=== PATIENT | male | born 1965 | race Caucasian/White ===

== ENCOUNTER → 2020-04-12 12:49 | Outpatient (CLI) | payer OTHER, SELFPAY ==
--- NOTE | ~2020-04-12 | CT_ITS ---
EXAMINATION: CT abdomen pelvis w con INDICATION: Localized swelling, mass, or lump of the trunk TECHNIQUE: Computed tomographic images of the abdomen and pelvis were obtained after the administrati on of 100 cc of Omnipaque 350 intravenous contrast. The dose-length product (DLP) was 1756.99 mGy-cm. Automated exposure control and iterative reconstruction technique were employed. COMPARISON: 07/26/2012 FINDINGS: Minimal dependent atelectasis is present in the lung bases. The heart size is normal. A sta ble 5 mm nodule of the right middle lobe is consistent with old granulomatous disease. There are nazario ges of interval cholecystectomy. The liver, spleen, pancreas, and adrenal glands are normal. The kidn eys are unremarkable. No pathologically enlarged abdominal or pelvic lymph nodes are identified. Ther e is no free intraperitoneal gas or evidence of bowel obstruction. No abdominal wall mass is identifi ed. Severe spondylosis is present at L5-S1. IMPRESSION: 1. No abdominal wall mass identified. Reviewed, dictated and finalized at location A.
[2020-04-12 13:19] LABS: Estimated Glomerular Filt Rate > 60
== END ==
PROVIDERS: PCP Family Medicine; Visit Provider Family Medicine
DX: R22.2 Localized swelling, mass and lump, trunk (principal)
CPT/HCPCS: 74177; Q9967

== ENCOUNTER 2021-09-14 06:56 | Emergency (ER) | payer OTHER, SELFPAY ==
--- NOTE | ~2021-09-14 | XR_ITS ---
EXAMINATION: XR chest 2V 09/14/2021 07:27 INDICATION: Cough and shortness of breath PROCEDURE: 2 view chest COMPARISON: No prior studies for comparison. FINDINGS: The lungs are clear. The cardiomediastinal silhouette is within normal limits. There are no pleural effusions. There is no pneumothorax suspected. IMPRESSION: 1: NO ACUTE CARDIOPULMONARY DISEASE. Reviewed, dictated and finalized at location A.
[2021-09-14 07:09] VITALS: BP 135/92; PULSE 100; RESP 20; TEMP 37.5; O2SAT 95
--- NOTE | 2021-09-14 07:50 | ED.URI ---
HPI - URI/Sore Throat General Chief Complaint: Upper Respiratory Infection Stated Complaint: cough Time Seen by Provider: 09/14/21 07:44 Source: patient and RN notes reviewed Mode of arrival: ambulatory Limitations: no limitations and clinical condition History of Present Illness HPI Narrative: 55 years old white female, morbidly obese presents with coughing, postnasal discharge, nasal congestion, scratchy throat for the last 6 days. Patient denied history of Covid infection or Covid vaccination. Patient denies any chest pain or shortness of breath. Related Data Allergies Allergy/AdvReac Type Severity Reaction Status Date / Time aspirin Allergy Unknown Nausea and Verified 06/19/21 14:55 Vomiting Review of Systems Review of Systems: CONSTITUTIONAL: Denies fever, chills, or sweats. EYES: Denies visual changes, redness, or discharge. ENT: Denies rhinorrhea, congestion, sore throat, or otalgia. CARDIOVASCULAR: Denies chest pain, palpitations, or edema. RESPIRATORY: Denies cough or dyspnea. GASTROINTESTINAL: Denies abdominal pain, nausea, vomiting, or diarrhea. GENITOURINARY: Denies dysuria or hematuria. SKIN: Denies rash or itching. MUSCULOSKELETAL: Denies back pain, joint pain, or myalgia. NEUROLOGIC: Denies headache, numbness, or weakness. PSYCHIATRIC: Denies anxiety or depression. PMFSH Past Medical History Medical History Abdominal wall mass BMI 50.0-59.9, adult BPH associated with nocturia Cough Erectile dysfunction Essential (primary) hypertension Hepatic steatosis Knee osteoarthritis LLQ abdominal pain Migraine JANETH (obstructive sleep apnea) Plaque psoriasis Family History Family History Father Malignant neoplasm of prostate Other Family history of cardiovascular disease Family history of hearing loss Hypertension Social History Social History Alcohol intake: never Exam Narrative: General appearance: Well-developed, well-nourished Skin: Normal color Head: Normocephalic, nontraumatic Eyes: Clear conjunctiva ENT: Oropharynx normal, ears normal, nose normal Neck: Supple, nontender Chest and respiratory: Airway patent, no respiratory distress, no accessory muscle use Heart: Regular rate/rhythm Abdomen: Soft, nontender, no organomegaly, quiet bowel sounds Vascular: Normal peripheral pulses, normal capillary refill. Musculoskeletal: Normal range of motion, nontender back Neurologic: Alert and oriented ?3, CORRECTIONAL PROGRAM SPECIALIST is normal as tested, no gross motor deficit Course Course Emergency Course: Stable Vital Signs Vital signs: Vital Signs Temperature 37.5 C 09/14/21 07:09 Pulse Rate 100 09/14/21 07:09 Respiratory Rate 20 09/14/21 07:09 Blood Pressure 135/92 H 09/14/21 07:09 Pulse Oximetry 95 09/14/21 07:09 Temperature 37.5 C 09/14/21 07:09 Pulse Rate 100 09/14/21 07:09 Respiratory Rate 20 09/14/21 07:09 Blood Pressure 135/92 H 09/14/21 07:09 Pulse Oximetry 95 09/14/21 07:09 MDM - URI/Sore Throat MDM Narrative Medical decision making narrative: Upper respiratory viral infection is my concern. Covid swab was done in the emergency room, Differential Diagnosis Differential diagnosis: Likely viral infection Critical Care Time Critical Care Time Critical Care Time: No Discharge Plan Discharge Clinical Impression: Acute upper respiratory infection Patient Disposition: Home, Self-Care Condition: Stable Instructions: Antibiotic Form, Cold Symptoms (ED) Additional Instructions: Return if symptoms are worsening , call
[2021-09-14 08:52] LABS: SARS-CoV-2 RNA PCR Negative
== END 2021-09-14 08:00 | disposition home or self-care (01) ==
PROVIDERS: Emergency Provider Emergency Medicine; PCP Family Medicine
DX: J06.9 Acute upper respiratory infection, unspecified (principal); Z20.822 Contact with and (suspected) exposure to COVID-19; N40.1 Benign prostatic hyperplasia with lower urinary tract symptoms; R35.1 Nocturia; I10 Essential (primary) hypertension; M17.10 Unilateral primary osteoarthritis, unspecified knee; G47.33 Obstructive sleep apnea (adult) (pediatric); L40.0 Psoriasis vulgaris; E66.01 Morbid (severe) obesity due to excess calories; Z68.43 Body mass index [BMI] 50.0-59.9, adult
CPT/HCPCS: 71046; 99283; C9803; U0003; U0005

== ENCOUNTER 2022-10-01 10:16 | Emergency (ER) | payer OTHER, SELFPAY ==
--- NOTE | 2022-10-01 10:20 | ED.UPPEXIN ---
HPI - Extremity Injury (Upper) General Chief Complaint: Extremity Injury, Upper Stated Complaint: Left Wrist Pain Source: patient and RN notes reviewed History of Present Illness HPI narrative: 57-year-old male presents to urgent care with complaints of left wrist pain and swelling. Patient states this started abdomen know where last night. Patient reports applying ice and taking ibuprofen without relief. Patient denies any injury or trauma. 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 Patient denies any fevers, chills, numbness, or tingling. Patient also noted to have high blood pressure in apartment and states he hasn't taken his BP meds in a month b/c something was bothering him so he quit taking his meds and he's in a much better mood. Pt denies any chest pain, SOB, dizziness, WILSON, or blurry vision. Related Data Allergies Allergy/AdvReac Type Severity Reaction Status Date / Time aspirin Allergy Unknown Nausea and Verified 10/01/22 10:26 Vomiting Review of Systems Review of Systems: Pertinent positives and pertinent negatives per HPI. PMFSH Past Medical History Medical History Abdominal wall mass BMI 50.0-59.9, adult BPH associated with nocturia Cough Erectile dysfunction Essential (primary) hypertension Hepatic steatosis Knee osteoarthritis LLQ abdominal pain Migraine JANETH (obstructive sleep apnea) Plaque psoriasis Family History Family History Father Malignant neoplasm of prostate Mother Hypertension Heart disease Pacemaker Sibling Breast cancer Other Family history of cardiovascular disease Family history of hearing loss Social History Social History Smoking status: Never smoker Second hand tobacco smoke exposure: Yes Alcohol intake: current Substance use: never Substance use type: does not use Living arrangements: with family Occupation/Education: occupation Additional occupation/education comments: [employer]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 Gender identity (if verbalized by the patient): Female Sexual Orientation (if Verbalized by the Patient): Straight or Heterosexual Comments At the time of my signature, I reviewed and agree with the nursing past medical, surgical, social, and family history. There is no relevant family history pertinent to the patient complaint. Exam Narrative: GENERAL: This is a well-nourished, well-developed patient, in no apparent distress. HEAD: normocephalic, atraumatic. EYES: Sclera clear/white. Vision is grossly intact. EARS: External ears normal, auditory canals clear and without drainage, TMs normal without perforation. Hearing grossly intact. NOSE: External nose normal with no obvious nasal discharge, nares without redness, no rhinorrhea. THROAT: Mucous membranes moist, posterior pharynx clear. NECK: Neck supple, non-tender without lymphadenopathy, masses or thyromegaly. CARDIOVASCULAR: Regular rate RESPIRATORY: Clear to auscultation. Breath sounds equal bilaterally. No wheezes, rales, or rhonchi. GASTROINTESTINAL: Abdomen soft, non-tender, nondistended. Bowel sounds are active. No hepato-splenomegaly, or palpable masses. No guarding. SKIN: warm, intact with no suspicious lesions or rash, good texture and turgor. NEURO: awake, alert, and oriented to person, place and time. There were no obvious focal neurologic abnormalities. EXTREMITIES: No clubbing, cyanosis. Left wrist with moderate swelling and stiffness. Pt has some mobility but not full flexion or extension due to pain. Tender to dorsal wrist. Course Course Level of Care: Express Care Visit Vital Signs Vital signs: Vital Signs Temperature 97.2 F L 10/01/22 10:27 Pulse Rate 69 10/01/22 10:27 Respiratory Rate 18 10/01/22 10:27 Blood Pr
[2022-10-01 10:27] VITALS: BP 175/101; PULSE 69; RESP 18; TEMP 36.2; O2SAT 96
[2022-10-01 10:29] VITALS: BP 175/101; PULSE 69; RESP 18; TEMP 36.2; O2SAT 96
[2022-10-01] MEDS: methylPREDNISolone SOD SUCC 125 MG VIAL IM (11:08)
== END 2022-10-01 11:13 | disposition home or self-care (01) ==
PROVIDERS: Emergency Provider Nurse Practitioner Family; PCP Family Medicine
DX: M19.032 Primary osteoarthritis, left wrist (principal); I10 Essential (primary) hypertension
CPT/HCPCS: 96372; 99213; G0463; J2930

== ENCOUNTER 2023-01-29 00:54 | Day surgery (SDC) | payer OTHER, SELFPAY ==
[2023-01-22 09:16] VITALS: BMI 50.8
--- NOTE | 2023-01-28 17:33 | PM.HPGS ---
History of Present Illness History of Present Illness Consent: Risks, benefits, and alternatives have been discussed and questions answered. Patient agrees to proceed with procedure. Chief complaint: neoplasm screening Narrative: Jelena Jorge is a 57 year old male Referred for colon cancer screening. Review of Systems Review of Systems: All systems reviewed & are unremarkable except as noted in HPI and below PMFSH Past Medical History Medical History Abdominal wall mass BMI 50.0-59.9, adult BPH associated with nocturia Cough Erectile dysfunction Essential (primary) hypertension Gout Hepatic steatosis Knee osteoarthritis LLQ abdominal pain Migraine JANETH (obstructive sleep apnea) Plaque psoriasis Screen for colon cancer Family History Family History Father Malignant neoplasm of prostate Mother Hypertension Heart disease Pacemaker Sibling Breast cancer Other Family history of cardiovascular disease Family history of hearing loss Social History Social History Smoking status: Never smoker Second hand tobacco smoke exposure: Yes Alcohol intake: current Substance use: never Substance use type: does not use Lack of Transportation: No Lack of Food: Never True Current Housing: I Have Housing Concerned About Future Housing: No Difficulty Paying Gas/Electric Bills: No Difficulty Paying for Meds: No Currently Unemployed: No Education: High School Diploma/GED Difficulty w/ Childcare or Family Care: No Living arrangements: with family Occupation/Education: occupation 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 Gender identity (if verbalized by the patient): Female Sexual Orientation (if Verbalized by the Patient): Straight or Heterosexual Spiritual care concerns: No Meds Home Medications and Allergies Home Medications Medication Instructions Recorded Confirmed Type valsartan 160 mg tablet 160 mg PO DAILY #90 tabs 10/19/22 01/29/23 Rx alfuzosin 10 mg tablet,extended 10 mg PO DAILY #30 tabs 12/27/22 01/29/23 Rx release 24 hr (Uroxatral) celecoxib 200 mg capsule (Celebrex) 200 mg PO DAILY #90 caps 12/27/22 01/29/23 Rx allopurinol 100 mg tablet 100 mg PO DAILY #90 tabs 01/08/23 01/29/23 Rx risankizumab-rzaa 150 mg/mL 150 mg subcut [id number] 01/22/23 01/29/23 History subcutaneous syringe (Skyrizi) Allergies Allergy/AdvReac Type Severity Reaction Status Date / Time aspirin Allergy Unknown Nausea and Verified 01/29/23 06:51 Vomiting Exam Const: General: alert Nutritional Appearance: obese Orientation/consciousness: patient oriented x3 Resp: Auscultation: clear to auscultation bilaterally Cardio: Rhythm: regular rhythm GI: GI Palp: Yes Soft to palpation and No Tenderness to palpation present (GI) Neuro: General: patient oriented x3 Assessment and Plan Assessment and plan (1) Screen for colon cancer: Code(s): Z12.11 - Encounter for screening for malignant neoplasm of colon Status: Acute Assessment and Plan: Colonoscopy with possible biopsy or polypectomy or cautery or injection of substances.
[2023-01-29 06:54] VITALS: BP 131/93; PULSE 69; RESP 18; TEMP 36.2; O2SAT 95
[2023-01-29] MEDS: LACTATED RINGERS 1,000 ML 150 ML IV CONT (07:04)
--- NOTE | 2023-01-29 07:33 | WPDANESEPPF ---
Anes - Initial Pre Proc Eval Procedure: Operation Date: 01/29/23 08:00 Proposed Procedures p Colonoscopy - Jean Paul Dejesus MD Date/Time: 01/29/23 07:33 Surgeon: Jean Paul Dejesus MD Pre Op Diagnosis: neoplasm screening Patient Data Age: 57 Gender: M Height: 1.85 m Weight: 175.1 kg Last Vital Signs Temp 97.2 F L 01/29/23 06:54 Pulse 69 01/29/23 06:54 Resp 18 01/29/23 06:54 BP 131/93 H 01/29/23 06:54 Pulse Ox 95 01/29/23 06:54 O2 Del Method Room Air 01/29/23 06:54 Allergies Allergy/AdvReac Type Severity Reaction Status Date / Time aspirin Allergy Unknown Nausea and Verified 01/29/23 06:51 Vomiting Home Medications Medication Instructions Recorded Confirmed Type valsartan 160 mg tablet 160 mg PO DAILY #90 tabs 10/19/22 01/29/23 Rx alfuzosin 10 mg tablet,extended 10 mg PO DAILY #30 tabs 12/27/22 01/29/23 Rx release 24 hr (Uroxatral) celecoxib 200 mg capsule (Celebrex) 200 mg PO DAILY #90 caps 12/27/22 01/29/23 Rx allopurinol 100 mg tablet 100 mg PO DAILY #90 tabs 01/08/23 01/29/23 Rx risankizumab-rzaa 150 mg/mL 150 mg subcut [id number] 01/22/23 01/29/23 History subcutaneous syringe (Skyrizi) Patient hx anesthesia problems: none Family hx anesthesia problems: none Results Review: All pre-operative results and documents have been reviewed as part of the pre-operative evaluation. [facility] Past Medical History Medical History Abdominal wall mass BMI 50.0-59.9, adult BPH associated with nocturia Cough Erectile dysfunction Essential (primary) hypertension Gout Hepatic steatosis Knee osteoarthritis LLQ abdominal pain Migraine JANETH (obstructive sleep apnea) Plaque psoriasis Screen for colon cancer Family History Family History Father Malignant neoplasm of prostate Mother Hypertension Heart disease Pacemaker Sibling Breast cancer Other Family history of cardiovascular disease Family history of hearing loss Social History Social History Smoking status: Never smoker Second hand tobacco smoke exposure: Yes Alcohol intake: current Substance use: never Substance use type: does not use Lack of Transportation: No Lack of Food: Never True Current Housing: I Have Housing Concerned About Future Housing: No Difficulty Paying Gas/Electric Bills: No Difficulty Paying for Meds: No Currently Unemployed: No Education: High School Diploma/GED Difficulty w/ Childcare or Family Care: No Living arrangements: with family Occupation/Education: occupation 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 Gender identity (if verbalized by the patient): Female Sexual Orientation (if Verbalized by the Patient): Straight or Heterosexual Spiritual care concerns: No Anes - Eval Final PreProcedure Day of Procedure 01/29/23 07:33 Patient weight: super morbidly obese Heart: regular rate and rhythm Lungs: clear to auscultation Airway: Mallampati scale class II Neurological: alert and oriented Last oral intake: >/= 8 hours ASA classification: III Emergent: no Anesthetic plan: proceed Anesthesia type and monitoring: general GIVS and standard monitoring Results Review: All pre-operative results and documents have been reviewed as part of the pre-operative evaluation. Informed Consent: The patient's anesthetic plan and its attendant risks and benefits were discussed with the patient/family/POA. Questions were solicited and answers provided to the satisfaction of the patient/family/POA.
[2023-01-29] MEDS: SIMETHICONE ORAL SUSPENSION 20 MG/0.3 ML 30 ML BOTTLE 0.6 ML IRRIGATION (07:58)
[2023-01-29 08:05] VITALS: BP 122/75; PULSE 70; RESP 16; O2SAT 99
[2023-01-29 08:15] VITALS: BP 128/70; PULSE 72; RESP 16; O2SAT 100
[2023-01-29 08:25] VITALS: BP 142/86; PULSE 64; RESP 18; O2SAT 100
== END 2023-01-29 08:34 | disposition home or self-care (01) ==
PROVIDERS: PCP Family Medicine; Visit Provider Internal Medicine Gastroenterology
PROC: 0DJD8ZZ Inspection of Lower Intestinal Tract, Via Natural or Artificial Opening Endoscopic (ICD-10-PCS; CPT 45378; principal; 2023-01-29 08:00)
DX: Z12.11 Encounter for screening for malignant neoplasm of colon (principal); N40.1 Benign prostatic hyperplasia with lower urinary tract symptoms; R35.1 Nocturia; I10 Essential (primary) hypertension; M10.9 Gout, unspecified; K76.0 Fatty (change of) liver, not elsewhere classified; G47.33 Obstructive sleep apnea (adult) (pediatric); L40.0 Psoriasis vulgaris; E66.01 Morbid (severe) obesity due to excess calories; Z68.43 Body mass index [BMI] 50.0-59.9, adult
CPT/HCPCS: 45378; J2704; J7120

== ENCOUNTER 2023-03-18 13:39 | Emergency (ER) | payer OTHER, SELFPAY ==
[2023-03-18 13:45] VITALS: BP 182/92; PULSE 91; RESP 18; TEMP 36.2; O2SAT 96
--- NOTE | 2023-03-18 14:03 | ED.GENADULT ---
HPI - General Adult General Chief complaint: Extremity Injury, Lower Stated complaint: Right Foot/Ankle Pain Source: patient and RN notes reviewed History of Present Illness HPI narrative: 57 yo M presents to urgent care with complaints of right foot and ankle pain. Pt states on Wednesday, he began having pain in his right big toe which has now traveled to his right lateral ankle. Pt also reporting the arch of his right foot has been cramping constantly. Pt denies any injury. Denies any fevers, chills, or new numbness or tingling. Pt does admit a hx of gout in his left wrist that he takes allopurinol for. Related Data Home Medications Medication Instructions Recorded Confirmed risankizumab-rzaa 150 mg/mL 150 mg subcut [id number] 01/22/23 01/29/23 subcutaneous syringe (Skyrizi) Allergies Allergy/AdvReac Type Severity Reaction Status Date / Time aspirin Allergy Unknown Nausea and Verified 01/29/23 06:51 Vomiting Review of Systems Review of Systems: CONSTITUTIONAL: Denies fever, chills, or sweats. EYES: Denies visual changes, redness, or discharge. ENT: Denies otalgia and sore throat CARDIOVASCULAR: Denies chest pain, palpitations, or edema. RESPIRATORY: Denies cough or dyspnea. GASTROINTESTINAL: Denies abdominal pain, nausea, vomiting, or diarrhea. GENITOURINARY: Denies dysuria or hematuria. SKIN: Denies rash or itching. MUSCULOSKELETAL: Right foot and ankle pain NEUROLOGIC: Denies headache, numbness, or weakness. Pertinent positives per HPI. [facility] Past Medical History Medical History Abdominal wall mass BMI 50.0-59.9, adult BPH associated with nocturia Cough Erectile dysfunction Essential (primary) hypertension Gout Hepatic steatosis Knee osteoarthritis LLQ abdominal pain Migraine JANETH (obstructive sleep apnea) Plaque psoriasis Screen for colon cancer Family History Family History Father Malignant neoplasm of prostate Mother Hypertension Heart disease Pacemaker Sibling Breast cancer Other Family history of cardiovascular disease Family history of hearing loss Social History Social History Smoking status: Never smoker Second hand tobacco smoke exposure: Yes Alcohol intake: current Substance use: never Substance use type: does not use Lack of Transportation: No Lack of Food: Never True Current Housing: I Have Housing Concerned About Future Housing: No Difficulty Paying Gas/Electric Bills: No Difficulty Paying for Meds: No Currently Unemployed: No Education: High School Diploma/GED Difficulty w/ Childcare or Family Care: No Living arrangements: with family Occupation/Education: occupation 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 Gender identity (if verbalized by the patient): Female Sexual Orientation (if Verbalized by the Patient): Straight or Heterosexual Spiritual care concerns: No Comments At the time of my signature, I reviewed and agree with the nursing past medical, surgical, social, and family history. There is no relevant family history pertinent to the patient complaint. Exam Narrative: GENERAL: This is a well-nourished, well-developed patient, in no apparent distress. HEAD: normocephalic, atraumatic. EYES: Sclera clear/white. Vision is grossly intact. EARS: External ears normal, auditory canals clear and without drainage. Hearing grossly intact. NOSE: External nose normal with no obvious nasal discharge, nares without redness, no rhinorrhea. THROAT: Mucous membranes moist, posterior pharynx clear. NECK: Neck supple, non-tender without lymphadenopathy, masses or thyromegaly. CARDIOVASCULAR: Regular rate and rhythm without murmurs, gallops, or rubs. RESPIRATORY: Clear to auscultation. Breath sounds equal bilaterally. No whe
[2023-03-18] MEDS: methylPREDNISolone SOD SUCC 125 MG VIAL IM (14:31)
== END 2023-03-18 14:38 | disposition home or self-care (01) ==
PROVIDERS: Emergency Provider Nurse Practitioner Family; PCP Family Medicine
DX: M10.9 Gout, unspecified (principal); I10 Essential (primary) hypertension
CPT/HCPCS: 96372; 99213; G0463; J2930

== ENCOUNTER 2023-04-05 15:37 | Emergency (ER) | payer OTHER, SELFPAY ==
[2023-04-05 15:47] VITALS: BP 133/77; PULSE 74; RESP 18; TEMP 36
== END 2023-04-05 15:47 | disposition left against medical advice (07) ==
LOC: EXPBETH 15:39
PROVIDERS: Emergency Provider Registered Nurse; PCP Family Medicine
DX: R03.0 Elevated blood-pressure reading, without diagnosis of hypertension (principal)
CPT/HCPCS: 99199

== ENCOUNTER 2024-05-21 23:29 | Emergency (ER) | payer OTHER, SELFPAY ==
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
[2024-05-21 23:34] VITALS: BP 151/82; PULSE 77; RESP 16; TEMP 36.4; O2SAT 97
[2024-05-22 01:33] VITALS: BP 145/83; PULSE 73; RESP 16; TEMP 36.4; O2SAT 94
[2024-05-22] MEDS: methocarbamoL 500 MG TABLET 1500 MG PO (03:55)
[2024-05-22] MEDS: ACETAMINOPHEN 500 MG TABLET 1000 MG PO (03:55)
[2024-05-22 03:57] VITALS: BP 139/99; PULSE 95; RESP 16; O2SAT 100
[2024-05-22] MEDS: LIDOCAINE HCL 4% SOLN 50 ML BTL 1 APPLIC TOPICAL (04:20)
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
== END 2024-05-22 04:53 | disposition home or self-care (01) ==
PROVIDERS: Emergency Provider Student in an Organized Health Care Education/Training Program; PCP Family Medicine
DX: S16.1XXA Strain of muscle, fascia and tendon at neck level, initial encounter (principal); V49.40XA Driver injured in collision with unspecified motor vehicles in traffic accident, initial encounter
CPT/HCPCS: 72125; 99284; A9270

== ENCOUNTER 2024-05-31 13:29 | Outpatient (CLI) | payer OTHER, SELFPAY ==
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
== END 2024-05-31 13:30 | disposition home or self-care (01) ==
PROVIDERS: PCP Family Medicine
DX: M54.9 Dorsalgia, unspecified (principal); M51.379 Other intervertebral disc degeneration, lumbosacral region without mention of lumbar back pain or lower extremity pain
CPT/HCPCS: 72100

== ENCOUNTER 2024-06-06 08:10 | Outpatient (CLI) | payer OTHER, SELFPAY ==
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
== END 2024-06-06 08:11 | disposition home or self-care (01) ==
PROVIDERS: PCP Family Medicine; Visit Provider Physician Assistant Medical
DX: M16.0 Bilateral primary osteoarthritis of hip (principal)
CPT/HCPCS: 73502

== ENCOUNTER 2024-07-11 09:31 | Outpatient (CLI) | payer OTHER, SELFPAY ==
--- NOTE | 2024-07-18 17:11 | WPDSLEEPSTUD ---
Sleep Study Date of Study: 07/11/24 Ordering Provider: RAMBO Faust Interpreting Physician: Beverly Raymundo MD Sleep Study Type: Split Polysomnogram Height: 1.85 m Weight: 181.437 kg Body Mass Index: 52.7 Neck Circumference (inches): 22 [place]: 4 Reason for Sleep Study Known obstructive sleep apnea, off CPAP several years, increased fatigue Sleep History Jelena Jorge is a 58-year-old male with know obstructive sleep apnea, on CPAP 10 years ago. He does not awaken from sleep feeling short of breath.He frequently awakens at night with heartburn, belching and coughing. He always snores, and this is always loud enough that others complain. He occasionally has trouble sleeping when he has a cold. He frequently sweats excessively at night. He heart pounding or beating irregularly at night. He constantly falls asleep during the day, rarely falls asleep involuntarily, never falls asleep while driving. He frequently has loss of muscle tone with strong emotion. He does not have daytime difficulties due to excessive sleepiness. He does not feel paralyzed on waking or falling asleep. He does not have vivid dreamlike scenes upon awakening or falling asleep. He does not feel afraid to go to sleep. He rarely has nightmares. He does not frequently remembers dreams. He occasionally has racing thoughts. He does not feel sad or depressed. He rarely has anxiety. He occasionally has muscular tension. He does not notice parts of his body jerking. He does not kick at night. He does not have crawling or aching feelings in his legs. Does not have leg pain during the night. He does not have morning jaw pain. He frequently grinds his teeth at night. He is not bothered by pain during the day nor is he awakened by pain during the night. He frequently wakes up feeling stiff in the morning. He occasionally wakes up with sore achy muscles. He frequently wakes up with pain in the neck and spine. He has fatigue and headaches. Normal bedtime is variable as he works swing shifts. It takes him 5 minutes to fall asleep. He typically awakens 3 times during the night long enough to go to the bathroom and then he returns to sleep within 5 minutes. He estimates getting between 4 and 6 hours of sleep on most nights. He lives at home with his . He takes naps in the afternoon or evening. A short nap lasting 10-15 minutes is not refreshing. He is usually drowsy for an hour after waking. He feels better in the afternoon or evening while working swing shift. Habits: Tobacco: never smoker Caffeine: none Alcohol: none Recreational substances: none PMFSH Past Medical History Medical History Screen for colon cancer Gout BPH associated with nocturia Plaque psoriasis Erectile dysfunction Knee osteoarthritis BMI 50.0-59.9, adult Cough Abdominal wall mass LLQ abdominal pain Migraine Elevated liver enzymes Essential (primary) hypertension Hepatic steatosis JANETH (obstructive sleep apnea) Family History Family History Father Malignant neoplasm of prostate Mother Hypertension Heart disease Pacemaker Sibling Breast cancer Other Family history of cardiovascular disease Family history of hearing loss Social History Social History Smoking status: Never smoker Second hand tobacco smoke exposure: Yes Alcohol intake: current Substance use: never Substance use type: does not use Do You Feel Safe in your Home?: Yes Lack of Transportation: No Lack of Food: Never True Current Housing: I Have Housing Concerned About Future Housing: No Difficulty Paying Gas/Electric Bills: No Difficulty Paying for Meds: No Currently Unemployed: No Education: High School Diploma/GED Difficulty w/ Childcare or Family Care: No Living arrangements: with family Occupation/Education: occupation 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 Gender identity (if verbalized by the patient): Female Sexual Orientation (if Verbalized by the Patient): Straight or Heterosexual Spiritual care concerns: No Medications Home Medications ?Medication ?Instructions ?Recorded ?Confirmed ?Type risankizumab-rzaa 150 mg/mL 150 mg subcut [id number] 01/22/23 05/24/24 History subcutaneous syringe (Skyrizi) celecoxib 200 mg capsule See Rx Instructions .Route 09/14/23 05/24/24 Rx .COMPLEX #90 caps valsartan 160 mg tablet 160 mg PO DAILY #90 tabs 12/13/23 05/24/24 Rx meloxicam 15 mg tablet 15 mg PO DAILY #30 tabs 05/24/24 05/24/24 Rx tizanidine 4 mg tablet 4 mg PO QHS PRN muscle spasticity 05/28/24 Rx #30 tabs rosuvastatin 20 mg tablet 20 mg PO DAILY #90 tabs 05/29/24 Rx alfuzosin 10 mg tablet,extended See Rx Instructions .Route 06/08/24 Rx release 24 hr .COMPLEX #90 tabs allopurinol 300 mg tablet 300 mg PO DAILY #90 tabs 06/28/24 Rx hydrochlorothiazide 25 mg tablet 25 mg PO DAILY #90 tabs 06/28/24 Rx Sleep Procedure A full night polysomnogram using the Photorank multi-channel system recorded the standard physiologic parameters including EEG, EOG, submentalis EMG, anterior tibialis EMG, EKG, body position, nasal and oral airflow using nasal pressure sensor and thermistor. Respiratory parameters of chest and abdominal movements were recorded with Respiratory Inductance Plethysmography belts. Oxygen saturation was recorded by pulse oximetry. Video monitoring was also performed. Sleep stages, periodic limb movements, and EEG arousals were scored in 30 second epochs according to the criteria of the AASM Scoring Manual. The Apnea-Hypopnea Index was calculated using CMS guidelines for definition of hypopnea with 4% O2 desaturations while scoring respiratory events. The patient did not take a sleep aid at the beginning of this test. After the baseline portion the patient had apnea-hypopnea index of 83.7 and a minimum saturation of 68%. He qualified for is titration, used a large ResMed Mirage Quattro fullface mask with heated humidity, initial pressure was CPAP 5 cm, titrated to 7 cm, 9 cm, 11 cm, 13 cm, 15 cm, 17 cm. He was transition to bilevel 18/14 in supine REM then 20/16 for ongoing hypopneas. The computer went down once during the night around 3:31 a.m., spontaneously recovered without any type of intervention from the environmental compliance technician. Sleep Architecture During the diagnostic portion of the study, the total recording time was 144.2 minutes. The total sleep time was 125.5 minutes. Sleep latency was 5.6 minutes. REM latency was 102.0 minutes. Sleep Efficiency was 87.1%. The patient had 11 awakenings for an awakening index of 5.3. Wake after sleep onset time was 13.0 minutes. The patient spent 52.5 minutes, 41.8% of total sleep time in Stage N1. The patient spent 54.0 minutes, 43.0% in Stage N2. The patient spent no time in Stage N3. The patient spent 19.0 minutes, 15.1% in Stage REM sleep. At 12:34:38 AM the patient was placed on PAP treatment and was titrated at pressures ranging from 5* cm/H20 with supplemental oxygen at - up to 20/16/0 cm/H20 with supplemental oxygen at -. During the treatment portion of the study, the total recording time was 350.7 minutes. The total sleep time was 265.0 minutes. Sleep latency was 7.0 minutes. REM latency was 15.5 minutes. Sleep Efficiency was 75.6%. Wake after Sleep Onset time was 78.5 minutes. The patient spent 43.5 minutes, 16.4% of total sleep time in Stage N1. The patient spent 170.5 minutes, 64.3% in Stage N2. The patient spent 2.5 minutes, 0.9% in Stage N3. The patient spent 48.5 minutes, 18.3% in Stage REM. Respiratory Analysis During the diagnostic portion of the study, the patient had 152 hypopneas, 23 obstructive apneas, - mixed apneas, and 1 central apneas for an overall Apnea Hypopnea Index of 83.7 events per hour. The REM Apnea Hypopnea Index was 85.3. The NREM Apnea Hypopnea Index was 83.4. The patient had a Central Apnea Hypopnea Index of 0.5. There were - Respiratory Effort Related Arousals resulting in a RERA index of - events per hour. The Respiratory Disturbance Index is 84.6 events per hour. There was no evidence of Rainer-Valle Respirations. During the treatment portion of the study, the patient had 57 hypopneas, 10 obstructive apneas, - mixed apneas, and 2 central apneas for an overall Apnea Hypopnea Index of 15.6 events per hour. The REM Apnea Hypopnea Index was 14.8. The NREM Apnea Hypopnea Index was 15.8. The patient had a Central Apnea Hypopnea Index of 0.5. There were - Respiratory Effort Related Arousals resulting in a RERA index of - events per hour. The Respiratory Disturbance Index is 20.2 events per hour. There was no evidence of Rainer-Valle Respirations. Arousals During the diagnostic portion of the study, there were a total of 91 arousals for an arousal index of 43.5. There were 44 respiratory arousals for an index of 21.0. There were no periodic limb movement arousals. There were 3 isolated limb movement arousals for an index of 1.4. There were 44 spontaneous arousals for an index of 21.0. During the treatment portion of the study, there were a total of 66 arousals for an index of 14.9. There were 23 respiratory arousals for an index of 5.2. There were 8 periodic limb movement arousals for an index of 1.8. There were 14 isolated limb movement arousals for an index of 3.2. There were 21 spontaneous arousals for an index of 4.8. Periodic Limb Movements During the diagnostic portion of the study, the patient had 8 isolated limb movements with an index of 3.8. The patient had 7 periodic limb movements with an index of 3.3. The patient had a total of 15 limb movements with a total limb movement index of 7.2. During the treatment portion of the study, the patient had 23 isolated limb movements with an index of 5.2. The patient had 48 periodic limb movements with an index of 10.9. The patient had a total of 71 limb movements with a total limb movement index of 16.1. Oximetry Data During the diagnostic portion of the study, the patient had an average oxygen saturation of 89.5% in wake with a minimum oxygen saturation of 69% and a maximum oxygen saturation of 99%. The patient had an average oxygen saturation of 87.4% in sleep with a minimum oxygen saturation of 68% and a maximum oxygen saturation of 99%. The patient had 202 oxygen desaturations resulting in an Oxygen Desaturation Index of 97.5. The patient spent 69.4 minutes, 48.4% of total sleep time with an oxygen saturation less than 88%. During the treatment portion of the study, the patient had an average oxygen saturation of 91.7% in wake with a minimum oxygen saturation of 83% and a maximum oxygen saturation of 97%. The patient had an average oxygen saturation of 90.4% in sleep with a minimum oxygen saturation of 83% and a maximum oxygen saturation of 98%. The patient had 109 oxygen desaturations resulting in an Oxygen Desaturation Index of 24.9. The patient spent 42.8 minutes, 13% of total sleep time with an oxygen saturation less than 88%. Snoring Profile Snoring was moderate to loud, eliminated during the titration. Cardiac Profile During the diagnostic portion of the study, the EKG showed normal sinus rhythm. The average pulse rate was 61.9 bpm. The minimum pulse rate was 52 bpm. The maximum pulse rate was 90 bpm. No arrhythmias noted. During the treatment portion of the study, the EKG showed normal sinus rhythm. The average pulse rate was 61.8 bpm. The minimum pulse rate was 50 bpm. The maximum pulse rate was 91 bpm. No arrhythmias noted. EEG Profile EEG was unremarkable, no evidence of seizures. Assessment and Plan Assessment and Plan (1) JANETH (obstructive sleep apnea): Code(s): G47.33 - Obstructive sleep apnea (adult) (pediatric) Status: Acute Assessment and Plan: This split night sleep study on 07/11/2024 shows severe obstructive sleep apnea syndrome, the apnea-hypopnea index is 83.7 using a 4% criteria, minimum desaturation to 68% and moderate snoring, successfully treated using CPAP 15 cm of water pressure and a large ResMed Mirage Quattro fullface mask with heated humidity. At this pressure, the patient spent 140.5 minutes in bed, 31 minutes awake, 76.5 minutes in non-REM and 33 minutes in REM. The sleep efficiency was 77.9%. The residual apnea-hypopnea index was 3.3 and the mean saturation was 90.9%. The patient had some supine REM at this setting. Another pressure which may be acceptable is CPAP 17 cm. The residual apnea-hypopnea index was 8.0 at this setting with a minimum saturation of 88%. The sleep efficiency was lower, 66.7% and the patient spent much less time at this pressure, 22.2 minutes however REM also occurred. The patient should be prescribed this ResMed equipment with CPAP 15 cm as well as tubing, filters and reservoir. This should be used with all episodes of sleep. Compliance should be reviewed within 31-90 days of starting therapy for usage greater than 4 hours per night greater than 70% of the nights. The patient should be asked about symptoms such as excessive daytime sleepiness, quality of sleep, decreased nocturia, increased mental functioning such as memory, mood, and concentration. I also recommend that the patient has an overnight oximetry on room air using CPAP 15 to assure that the nocturnal hypoxemia has resolved. If he remains below 88% for more than 5 minutes I recommend increasing his CPAP to 17 cm of water pressure and repeating the evaluation of the compliance. Please referred to Sleep Medicine if you need any assistance with this complicated patient. BMI is 52. Weight management is advised. Clinical data suggests that weight loss of 10% can reduce the severity of respiratory events and snoring and improve AHI by as much as 25%. Data The data obtained during this sleep study is adequate for interpretation. Certification This sleep study has been reviewed by a board certified sleep medicine physician.
[2024-07-18 17:45] VITALS: BMI 52.7
== END 2024-07-12 06:37 | disposition home or self-care (01) ==
LOC: ANHCSM 09:40
PROVIDERS: PCP Family Medicine; Visit Provider Nurse Practitioner Family
DX: G47.33 Obstructive sleep apnea (adult) (pediatric) (principal)
CPT/HCPCS: 95811

== ENCOUNTER 2025-03-07 09:23 | Outpatient (CLI) | payer OTHER, SELFPAY ==
--- NOTE | ~2025-03-07 | CT_ITS ---
EXAMINATION: CT abdomen pelvis wo/w con DATE: 03/07/2025 10:18 INDICATION: Left kidney mass. TECHNIQUE: Computed tomography (CT) of the abdomen and pelvis was performed without and with 100 mL Omnipaque 350 intravenous contrast. Automated exposure control and iterative reconstruction technique were employed. The dose-length product was 2960.45 mGy-cm. COMPARISON: CT abdomen and pelvis 04/12/2020 FINDINGS: The visualized portions of lung bases demonstrate mild atelectasis. Calcified pulmonary nodules and calcified hilar lymph nodes are consistent with old granulomatous disease. There is a stable 5 mm nodule in right middle lobe, likely benign. No pleural effusion. The heart size is normal. No pericardial effusion. The liver is normal. Calcifications in the spleen are consistent with old granulomatous disease. There are changes of cholecystectomy. The pancreas, adrenal glands, and right kidney are normal. There is a 7.7 cm enhancing mass in left kidney. There is no urolithiasis. There are no dilated loops of bowel. The appendix is not visualized. There are no pathologically enlarged lymph nodes. There is no free intraperitoneal fluid. There is mild thoracic spondylosis and severe lumbar spondylosis. IMPRESSION: 1. 7.7 cm enhancing mass in left kidney, consistent with renal cell carcinoma. Reviewed, dictated and finalized at location E.
--- OUTSIDE RECORDS SUMMARY | 2025-03-07 10:08 | XMS_ITS | Encounter Summary ---
Author Organization [facility] Address [address] [place] [address] Care Team Providers Care Application Assistant Name Role Phone Sachin Cooper MD Primary Care Provider Reason for Visit * Reason Onset Date Comments Nurse Only 11/08/2024 Encounter Details Date Type Department Care Team (Late st Contact Info) Description 11/08/2024 Telephone [facility] - Dermatology [address] [place] [address], [facility] [place] [address] Christopher Teran MD [address] [place] [address] 3 [place] [address] Nurse Only Social History Tobacco Use Types Packs/Day Years Used Date Smoking Tobacco: Never Smokeless Tobacco: Never Alcohol Use Standard Drinks/Week Comments Yes 2 (1 standard drink = 0.6 oz pur e alcohol) rarely Sex and Gender Information Value Date Recorded Sex Assigned at Not on file Legal Sex Male 5:14 PM BOX COVERER HAND Gender Identity Not on file Sexual Orientation Not on file documented as of this encounter Miscellaneous Notes * Telephone Encounter - Prema Chung PA - 11/14/2024 11:07 AM CDT Requested Prescriptions Pending Prescriptions Disp Refills risankizumab-rzaa (Skyrizi Pen) 150 MG/ML injection 1 mL 2 Sig: GIVE ONE INJECTION(S) (150MG) SUBCUTANEOUSLY ONCE EVERY 12 WEEKS. Sent to [facility] pharmacy per insurance Perma MALDONADO PA-C * Telephone Encounter - Kelley Rocha - 11/13/2024 3:56 PM CDT Prema how many refills can I give the pharmacy. Kelley Rocha Last visit: 05/15/24 Next visit: not scheduled Lab: Quant Gold TB Plus 05/17/24 negative Kelley Rocha * Telephone Encounter - Júnior Whitaker - 11/13/2024 2:59 PM CDT [facility] [employer] is stating that pt is requesting Skyrizi his last does was May. She is asking if pt needs to restart medication. * Telephone Encounter - Nel Schuster - 11/10/2024 11:25 AM CDT Tanvi with [employer] is calling about this pt needing refills. Tanvi mentioned that this is the second attempt to reach someone. Please assist, thank you! * Telephone Encounter - Alexx Goodwin - 11/08/2024 3:12 PM CDT Pt s pharmacy is calling to get a refill of a pts medication risankizumab-rzaa (Skyrizi Pen) 150 MG/ML injection cbn for pharmcary [phone] documented in this encounter Plan of Treatment Upcoming Encounters Date Type Department Care Team (Late st Contact Info) Description 07/16/2025 8:40 AM BOX COVERER HAND Office Visit [facility] - Dermatology [address] [place] [address], [place] [id number] Christopher Teran MD [address] [place] [address] 3 [place] [address] documented as of this encounter Visit Diagnoses Diagnosis Other psoriasis documented in this encounter Care Teams Application Assistant Relationship Specialty Start Date End Date Sachin Cooper MD [address] [place] [address] PCP - General 08/23/12 documented as of this encounter
--- OUTSIDE RECORDS SUMMARY | 2025-03-07 10:08 | XMS_ITS | Encounter Summary ---
Author Organization [facility] Address [address] [place] [address] Care Team Providers Care Crop And Soil Technician Name Role Phone Sachin Cooper MD Primary Care Provider [phone] Reason for Visit * Reason Onset Date Comments General 07/27/2024 Encounter Details Date Type Department Care Team (Late st Contact Info) Description 07/27/2024 Telephone [facility] - Centralized Scheduling [address] [place] [phone] Christopher Teran MD [address] [facility] 3 [place] [address] General Social History Tobacco Use Types Packs/Day Years Used Date Smoking Tobacco: Never Smokeless Tobacco: Never Alcohol Use Standard Drinks/Week Comments Yes 2 (1 standard drink = 0.6 oz pur e alcohol) rarely Sex and Gender Information Value Date Recorded Sex Assigned at Not on file Legal Sex Male 5:14 PM CHILD CAREGIVER Gender Identity Not on file Sexual Orientation Not on file documented as of this encounter Miscellaneous Notes * Telephone Encounter - Kelley Rocha - 07/27/2024 10:16 AM CST Called pt to advise [facility] to reach [facility] by phone and pt advised [facility] is [facility] specialty [facility] uses not [facility]. Kelley Rocha D CAREGIVER * Telephone Encounter - Monet Andino - 07/27/2024 9:45 AM CST A nurse from [facility] would like to let provider know that the referral for the [facility] has been canceled. They made 3 attempts to call patient and they are going to close the account n [phone] D CAREGIVER documented in this encounter Plan of Treatment Upcoming Encounters Date Type Department Care Team (Late st Contact Info) Description 07/16/2025 8:40 AM CHILD CAREGIVER Office Visit [facility] - Dermatology [address] [place] [address], [place] [phone] Christopher Teran MD [address] [place] [address] 3 [place] [address] documented as of this encounter Visit Diagnoses Not on filedocumented in this encounter Care Teams Crop And Soil Technician Relationship Specialty Start Date End Date Sachin Cooper MD [address] [place] [address] PCP - General 08/23/12 documented as of this encounter
--- OUTSIDE RECORDS SUMMARY | 2025-03-07 10:08 | XMS_ITS | Encounter Summary ---
Author Organization [facility] Address [address] [place] [address] Care Team Providers Care Primary Grade Teacher Name Role Phone Sachin Cooper MD Primary Care Provider [phone] Reason for Visit * Reason Onset Date Comments Question 10/16/2024 Encounter Details Date Type Department Care Team (Late st Contact Info) Description 10/16/2024 Telephone [facility] Dermatology [address] [place] [address], [facility] [place] [address] Christopher Teran MD [address] [place] [address] 3 [place] [address] Question Social History Tobacco Use Types Packs/Day Years Used Date Smoking Tobacco: Never Smokeless Tobacco: Never Alcohol Use Standard Drinks/Week Comments Yes 2 (1 standard drink = 0.6 oz pur e alcohol) rarely Sex and Gender Information Value Date Recorded Sex Assigned at Not on file Legal Sex Male 5:14 PM PAYROLL ACCOUNTANT Gender Identity Not on file Sexual Orientation Not on file documented as of this encounter Progress Notes * Bernadine Barron - 10/26/2024 11:52 AM CDT Medication Prior Authorization: Medication: Skyrizi 150mg/ml pen Status: Approved 10/18/24 through 10/18/25 Submitted via: [facility] Insurance: [facility] [place] (p: [phone]) (f: [phone]) Case/Reference number: ID: [id number] RX Card Billing Info: BIN: [id number] PCN: ADV GROUP: [id number] ID: [id number] PA approval notice uploaded to media tab. Faxed approval notice to [employer]. Will have thecase manager strategic alliances reach out to the patient as well regarding approval of Skyrizi and continue filling with [employer]. Bernadine Barron- Pharmacy Sorority Mother (Dermatology) documented in this encounter Miscellaneous Notes * Telephone Encounter - Bernadine Barron - 10/18/2024 4:42 PM CDT PA submitted forcontinuation of therapy Skyrizi 150mg/ml pen maintenance dose of 150mg every 12 weeks via [employer] currently waiting on decision. [place]: n/a (epa) Provider:[id number] (Jeffry) Rx sent by: Winston Barron It Risk Analyst - Pharmacy Sorority Mother * Telephone Encounter - Angela Robles - 10/16/2024 4:09 PM CDT Pt called stating he needs to speak with a nurse about getting his medications sen to [facility]. documented in this encounter Plan of Treatment Upcoming Encounters Date Type Department Care Team (Late st Contact Info) Description 07/16/2025 8:40 AM PAYROLL ACCOUNTANT Office Visit [facility] - Dermatology [address] [place] [address], [place] [address] Christopher Teran MD [address] [place] [address] 3 [place] [address] documented as of this encounter Visit Diagnoses Not on filedocumented in this encounter Care Teams Primary Grade Teacher Relationship Specialty Start Date End Date Sachin Cooper MD [address] [place] [address] PCP - General 08/23/12 documented as of this encounter
--- OUTSIDE RECORDS SUMMARY | 2025-03-07 10:08 | XMS_ITS | Clinical Summary ---
Author Organization [facility] Address [address] [place] [address] Care Team Providers Care Post Doctoral Fellow Name Role Phone Sachin Cooper MD Primary Care Provider [phone] Allergies Active Allergy Reactions Criticality Noted Date Comments Aluminum Aspirin Nausea Only Low 05/01/2015 Aspirin Nausea only Low 05/01/2015 Medications valsartan (DIOVAN) 80 mg tablet Take 80 mg by mouth daily 1 Active triamcinolone (KENALOG) 0.1 % ointment APPLY TO AFFECTED AREA ON AXILLA AND GROIN TWICE A DAY 1 Active tacrolimus (PROTOPIC) 0.1 % ointment Apply to psoriasis in genitals/skin folds two times daily prn. 30 days supply. 0 Active Cosentyx Pen, 2 Pens, pen injector 1 Active Skyrizi 150mg/1.66mL(75 mg/0.83 mL x2) syringe kit 1 Active meloxicam (MOBIC) 15 mg tablet Take 15 mg by mouth daily 1 Active losartan (COZAAR) 25 mg tablet Take 25 mg by mouth daily 6 Active ibuprofen (ADVIL,MOTRIN) 800 mg tablet Take 800 mg by mouth every 8 (eight) hours as needed 0 Active hydroCHLOROthia zide (HYDRODIURIL) 25 mg tablet Take 25 mg by mouth daily 1 Active diclofenac sodium (VOLTAREN) 1 % gel Apply 1 g topically daily 0 Active clobetasoL (TEMOVATE) 0.05 % ointment APPLY TOPICALLY TO PSORIASIS ON TRUNK/EXTREMIT IES UP TO TWICE DAILY. 6 Active Active Problems Problem Noted Date Diagnosed Date Psoriasis 12/09/2015 Overview (10/09/2020): Last Assessment & Plan: - discussed condition, natural course and treatment options - discussed risks, benefits, and possible side effects of cosentyx and skyrizi -uncontrolled with 4% BSA involvement on cosentyx -patient requesting a trial of a different drug for possibly better control -will request prior auth for skyrizi due to different mechanism of action -will continue cosentyx until skyrizi is approved -patient will start skyrizi 2 weeks after last dose of cosentyx -DC clobetasol due to stinging, starting TAC ointment PRN Social History Tobacco Use Types Packs/Day Years Used Date Smoking Tobacco: Never Smokeless Tobacco: Never Personal Safety Answer Date Recorded Getting School Help Needed Not on file 09/10 Sex and Gender Information Value Date Recorded Sex Assigned at Not on file Legal Sex Male 9:37 AM CHIEF PHARMACIST Gender Identity Not on file Sexual Orientation Not on file Obstetrics History Last Filed Vital Signs Vital Sign Reading Time Taken Comments Blood Pressure 140/88 10/09/2020 9:21 AM CDT Pulse 69 10/09/2020 9:21 AM CDT Temperature 36.5 C (97.7 F) 10/09/2020 9:21 AM CDT Respiratory Rate - - Oxygen Saturation - - Inhaled Oxygen Concentration - - Weight 177.4 kg (391 lb) 10/09/2020 9:21 AM CDT Height 185.4 cm (6' 1) 10/09/2020 9:21 AM CDT Body Mass Index 51.59 10/09/2020 9:21 AM CDT Plan of Treatment Not on file Insurance MALICK MONTEMAYOR PPO Care Teams Post Doctoral Fellow Relationship Specialty Start Date End Date Sachin Cooper MD PCP - General Family Medicine 09/20/20
--- OUTSIDE RECORDS SUMMARY | 2025-03-07 10:08 | XMS_ITS | Encounter Summary ---
Author Organization [facility] Address [address] [facility] [place] [address] Care Team Providers Care Cavalry Scout Name Role Phone Sachin Cooper MD Primary Care Provider [phone] Reason for Visit * Reason Onset Date Comments Refill Request 08/19/2023 Encounter Details Date Type Department Care Team (Late st Contact Info) Description 08/19/2023 Telephone [facility] Dermatology [address] [place] [address], [facility] [place] [address] Christopher Teran MD [address] [place] [address] [address] [place] [address] Refill Request Social History Tobacco Use Types Packs/Day Years Used Date Smoking Tobacco: Never Smokeless Tobacco: Never Alcohol Use Standard Drinks/Week Comments Yes 2 (1 standard drink = 0.6 oz pur e alcohol) rarely Sex and Gender Information Value Date Recorded Sex Assigned at Not on file Legal Sex Male 5:14 PM VETERINARY NURSE Gender Identity Not on file Sexual Orientation Not on file documented as of this encounter Miscellaneous Notes * Telephone Encounter - Bernadine Barron - 09/30/2023 4:15 PM CDT PA submitted and approved for continuation of therapy with Skyrizi 150mg/ml pen every 12 weeks from09/30/23 to 09/29/24 under case:[id number] via [facility] per [employer] and currently waiting on decision. I will fax approval information to [employer] [facility]. [place]: [id number] Case: [id number] Provider: [id number](Jeffry) Bernadine Barron * Telephone Encounter - Prema Chung PA - 08/20/2023 1:26 PM CST This was refilled on the . MA to call patient to see if there is another issue Has he called [facility]? Prema RINARY NURSE * Telephone Encounter - Júnior Whitaker - 08/19/2023 11:38 AM CST Pt is stating that prescription Skyrizi is needing to be renewed in order for him to get him medication filled. RINARY NURSE documented in this encounter Plan of Treatment Upcoming Encounters Date Type Department Care Team (Late st Contact Info) Description 07/16/2025 8:40 AM VETERINARY NURSE Office Visit [facility] Dermatology [address] [place] [address], [facility] [place] [address] Christopher Teran MD [address] [place] [address] 3 [place] [address] documented as of this encounter Visit Diagnoses Not on filedocumented in this encounter Care Teams Cavalry Scout Relationship Specialty Start Date End Date Sachin Cooper MD [address] [place] [address] PCP - General 08/23/12 documented as of this encounter
--- OUTSIDE RECORDS SUMMARY | 2025-03-07 10:08 | XMS_ITS | Encounter Summary ---
Author Organization [facility] Address [address] [facility] [place] [place] [address] Care Team Providers Care Artifacts Conservator Name Role Phone Sachin Cooper MD Primary Care Provider Reason for Visit * Reason Onset Date Comments LABS ONLY 06/25/2021 Encounter Details Date Type Department Care Team (Late st Contact Info) Description 06/25/2021 Telephone [facility] [address] [place] [address] Christopher Teran MD [address] [facility] 3L [place] [address] LABS ONLY Social History Tobacco Use Types Packs/Day Years Used Date Smoking Tobacco: Never Smokeless Tobacco: Never Alcohol Use Standard Drinks/Week Comments Yes 2 (1 standard drink = 0.6 oz pur e alcohol) rarely Sex and Gender Information Value Date Recorded Sex Assigned at Not on file Legal Sex Male 5:14 PM LICENSED PRACTICAL NURSE INSTRUCTOR Gender Identity Not on file Sexual Orientation Not on file documented as of this encounter Miscellaneous Notes * Telephone Encounter - Camila Gould - 06/25/2021 9:27 AM CST Pt called to get an appointment set up, wanted to schedule with Dr Campbell so as not to be out 5 months from follow-up appointment. Needs a blood work order for appointment on 07/01/2021. Would [id number]. Please advise NSED PRACTICAL NURSE INSTRUCTOR documented in this encounter Plan of Treatment Upcoming Encounters Date Type Department Care Team (Late st Contact Info) Description 07/16/2025 8:40 AM LICENSED PRACTICAL NURSE INSTRUCTOR Office Visit [facility] - Dermatology [facility], [place] [address] Christopher Teran MD [address] [place] [address] 3 [place] [address] documented as of this encounter Visit Diagnoses Not on filedocumented in this encounter Care Teams Artifacts Conservator Relationship Specialty Start Date End Date Sachin Cooper MD [address] [place] [address] PCP - General 08/23/12 documented as of this encounter
--- OUTSIDE RECORDS SUMMARY | 2025-03-07 10:08 | XMS_ITS | Clinical Summary ---
Author Organization [facility] Address [address] [place] [address] Care Team Providers Care Wastewater Plant Operator Name Role Phone Sachin Cooper MD Primary Care Provider [phone] Source Comments [facility],non-owned Affiliates and Associated Physician Practices is amultiple site organization consisting of ambulatory clinics and hospital sitesin [place], [place], [place] and [place]. This disclosure is being madepursuant to the Care Everywhere program and may not contain all information available regarding this patient. Last updated 18.[facility] [employer] Allergies Active Allergy Reactions Criticality Noted Date Comments Aspirin Nausea Low 05/01/2015 Medications * Be aware that medications may not be up to date on this document. Alwaysverify current medications with the patient. losartan (COZAAR) 25 MG tablet Take 1 (one) tablet by mouth once daily 1 8 Active fluticasone propionate (FLONASE) 50 MCG/ACT nasal spray [place] 2 (two) sprays into each nostril once daily as needed 9 Active meloxicam (MOBIC) 15 MG tablet Take 15 mg by mouth once daily 9 Active loratadine (CLARITIN) 10 MG tablet Take 1 (one) tablet by mouth once daily 1 9 Active hydroCHLOROthi azide (HYDRODIURIL) 25 MG tablet Take 25 mg by mouth once daily 1 9 Active diclofenac sodium (VOLTAREN) 1 % gel Apply 1 g to affected area once daily 0 Active ibuprofen (MOTRIN) 800 MG tablet Take 800 mg by mouth every 8 hours as needed 0 Active valsartan (DIOVAN) 80 MG tablet Take 1 (one) tablet by mouth once daily 1 Active alfuzosin CR 24hr (UROXATRAL) 10 MG tablet once daily 1 Active allopurinol (Zyloprim) 100 MG tablet Take 1 (one) tablet by mouth once daily 3 Active celecoxib (CeleBREX) 200 MG capsule Take 1 (one) capsule by mouth once daily 3 Active gentamicin (Garamycin) 0.1 % topical ointment APPLY TO AFFECTED TOE DAILY. COVER WITH BAND-AID OR GAUZE Active ipratropium (Atrovent) 0.06 % nasal spray USE 2 SPRAYS IN EACH NOSTRIL FOUR TIMES A DAY FOR 4 DAYS Active rimegepant (Nurtec) 75 MG tablet PLEASE SEE ATTACHED FOR DETAILED DIRECTIONS Active rosuvastatin (Crestor) 20 MG tablet Take 1 (one) tablet by mouth once daily 4 Active colchicine 0.6 MG tablet TAKE 2 TABLETS BY MOUTH TO START FOR GOUT FLARE THEN 1 TAKE 1 TABLET 1 HOUR LATER 1 TIME 4 Active tacrolimus (Protopic) 0.1 % ointmentIndica tions:Other psoriasis Apply to psoriasis in genitals/skin folds two times daily prn. 30 days supply. 100 g 4 4 Active triamcinolone acetonide (Kenalog) 0.1 % ointmentIndica tions:Other psoriasis Apply to affected area on 30 BID. 30 day supply 454 g 5 4 Active risankizumab-r zaa (Skyrizi Pen) 150 MG/ML injectionIndic ations:Other psoriasis GIVE ONE INJECTION(S) (150MG) SUBCUTANEOUSLY ONCE EVERY 12 WEEKS. 1 mL 2 5 Active Active Problems Problem Noted Date Diagnosed Date Other psoriasis 06/07/2017 Assessment & Plan (07/15/2020 11:52 AM SUPERVISOR MENDING): - discussed condition, natural course and treatment [...] due to stinging, starting TAC ointment PRN Other alf (current) drug therapy 6 Encounter for long-term (cur rent) use of high-risk medication 12/09/2015 Assessment & Plan (07/15/2020 9:40 AM SUPERVISOR MENDING): -CMP and CBC from Jun 2020 wnl -quantiferon gold not drawn, gave patient printed order for this lab and he will have it drawn today Immunizations Immunization Administration Dates Next Due INFLUENZA VACCINE 04/11/2021,04/22/2020,04/21/20 19 Family History Medical History Relation Name Comments Allergy (Severe) Neg Hx Asthma Neg Hx CVA Neg Hx Cancer Neg Hx Cancer - Breast Neg Hx Cancer - Other Neg Hx Cancer - Skin, Melanoma Neg Hx Cancer - Skin, Non Melanoma Neg Hx Eczema Neg Hx Hemophilia Neg Hx Psoriasis Neg Hx Rashes/Skin Problems Neg Hx Social History Tobacco Use Types Packs/Day Years Used Date Smoking Tobacco: Never Smokeless Tobacco: Never Tobacco Cessation:Counseling Given: Not Answered Alcohol Use Standard Drinks/Week Comments Yes 2 (1 standard drink = 0.6 oz pur e alcohol) rarely Sex and Gender Information Value Date Recorded Sex Assigned at Not on file Legal Sex Male 5:14 PM SUPERVISOR MENDING Gender Identity Not on file Sexual Orientation Not on file Plan of Treatment Upcoming Encounters Date Type Department Care Team (Late st Contact Info) Description 07/16/2025 8:40 AM SUPERVISOR MENDING Office Visit [facility] Dermatology [address] [place] [address], [facility] [place] [address] Christopher Teran MD [address] [place] [address] [place] [address] Health Maintenance Due Date Last Done Comments COLOGUARD (AGES 45-75) - COL ON CA SCREENING 1965 COLON MONITORING 1965 COLONOSCOPY - COLON CA SCREENING 1965 CT COLONOGRAPHY - COLON CA SCREENING 1965 Colorectal Cancer Screening 1965 FIT - COLON CA SCREENING 1965 FLEX SIG - COLON CA SCREENING 1965 HIV SCREENING 1980 DTAP/TDAP/TD VACCINES (1 - Tdap) 1984 HEPATITIS B VACCINE (1 of 3 - 19+ 3-dose series) 1984 PNEUMOCOCCAL VACCINE 50+ (1 of 1 - PCV) 09/21/2015 ZOSTER VACCINE (1 of 2) 09/21/2015 DEPRESSION SCREENING 06/28/2024 COVID-19 VACCINE (1 - 2023-2 5 season) 2025 INFLUENZA VACCINE (#1) 2025 , 04/22/2020, 04/21/2019 HEPATITIS C SCREENING Completed 05/01/2015 HIB VACCINE Aged Out No longer eligi ble based on patient's age to complete this topic HPV VACCINE Aged Out No longer eligi ble based on patient's age to complete this topic MENINGOCOCCAL (Group B) VACCINE SHARED DECISION-MAKING Aged Out No longer eligible based on patient's age to complete this topic MENINGOCOCCAL GROUPS A/C/Y/W VACCINE Aged Out No longer eligible b ased on patient's age to complete this topic Procedures Procedure Name Priority Date/Time Associated Diagnosis Comments HEPATITIS SCREEN ACUTE Routine 05/01/2015 3:37 PM SUPERVISOR MENDING from Last 3 Months or Most Recently Relevant to Health Maintenance Results * HEPATITIS SCREEN ACUTE (05/01/2015 3:37 PM SUPERVISOR MENDING) Hepatitis A Virus Antibody IgM Negative Negative [facility] ([facility]) Hepatitis B Virus Surface Antigen Screen Negative Negative [facility] ([facility]) Hepatitis B Core Virus Antibody IgM Negative Negative [facility] ([facility]) Hepatitis C Virus Antibody 0.3 0.0 - 0.9 s/co ratio [facility] ([facility]) Comment: Negative: < 0.8 Indeterminate: 0.8 - 0.9 Positive: > 0.9 In order to reduce the incidence of a false positive result, the CDC recommends that all s/co ratios between 1.0 and 10.9 be confirmed by a more specific supplemental or PCR testing. [facility] Ab w/Reflex to Verification test #[id number]. Blood specimen (specimen) BLOOD SPECIMEN / Unknown 05/01/2015 3:37 PM SUPERVISOR MENDING 05/01/2015 5:50 PM SUPERVISOR MENDING Narrative [facility] ([facility]) - 05/03/2015 8:12 PM SUPERVISOR MENDING Performed at: [facility] [address] [place], [place] [id number] Radio Technician: Jairo Hunt PhD, Phone: [phone] [facility] Olivia Teran MD LAB - CHEMISTRY ORDERABLES Ed ited Result - Final [facility] ([facility]) [address] [place] [address], [facility] from Last 3 Months or Most Recently Relevant to Health Maintenance Insurance [facility] Care Teams Wastewater Plant Operator Relationship Specialty Start Date End Date Sachin Cooper MD [address] [place] [phone] PCP - General 08/23/12
--- OUTSIDE RECORDS SUMMARY | 2025-03-07 10:08 | XMS_ITS | Encounter Summary ---
Author Organization [facility] Address [address] [place] [address] Care Team Providers Care Break Off Worker Name Role Phone Sachin Cooper MD Primary Care Provider [phone] Reason for Visit * Reason Onset Date Comments General 04/28/2024 Encounter Details Date Type Department Care Team (Late st Contact Info) Description 04/28/2024 Telephone [facility] - Dermatology [address] [place] [address], [facility] [place] [address] Christopher Teran MD [address] [place] [address] [address] [place] [address] General Social History Tobacco Use Types Packs/Day Years Used Date Smoking Tobacco: Never Smokeless Tobacco: Never Alcohol Use Standard Drinks/Week Comments Yes 2 (1 standard drink = 0.6 oz pur e alcohol) rarely Sex and Gender Information Value Date Recorded Sex Assigned at Not on file Legal Sex Male 5:14 PM 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 ETING SUMMER INTERN * Telephone Encounter - Prema Chung PA - 05/03/2024 11:00 AM MARKETING SUMMER INTERN Orders have been sent to Sangeeta HUGHES to notify patient Prema ETING SUMMER INTERN * Telephone Encounter - Corey Denton - 04/28/2024 11:13 AM CDT Current Provider: Jeffry Reason for Call: pt is requesting tubercolosis testing to be done and wants c/b confirming it has been ordered Patient Call Back Number: [phone] documented in this encounter Plan of Treatment Upcoming Encounters Date Type Department Care Team (Late st Contact Info) Description 07/16/2025 8:40 AM MARKETING SUMMER INTERN Office Visit [facility] - Dermatology [address] [place] [address], [place] [id number] Christopher Teran MD [address] [place] [address] [address] [place] [id number] Scheduled Orders Name Type Priority Associated Diagnoses Orde r Schedule QU[facility]ER[facility] TB-GOLD Lab Routine High risk medication use Ordered: 05/03/2024 documented as of this encounter Procedures Procedure Name Priority Date/Time Associated Diagnosis Comments CBC W AUTO DIFFERENTIAL Routine 05/17/2024 7:46 AM MARKETING SUMMER INTERN High risk medication use COMPREHENSIVE METABOLIC PANEL Routine 05/17/2024 7:46 AM MARKETING SUMMER INTERN High risk medication use documented in this encounter Results * (ABNORMAL) COMPREHENSIVE METABOLIC PANEL (05/17/2024 7:46 AM MARKETING SUMMER INTERN) Glucose 102(H) 65 - 99 mg/dL [facility] Comment: Fasting reference interval For someone without known diabetes, a glucose value between 100 and 125 mg/dL is consistent with prediabetes and should be confirmed with a follow-up test. BUN 22 7 - 25 mg/dL [facility] Creatinine 1.41(H) 0.70 - 1.30 mg/dL [facility] eGFR by Cystatin C 58(L) > OR = 60 mL/min/1.7 3m2 [facility] BUN/Creatinine Ratio 16 6 - 22 (calc) [facility] Sodium 136 135 - 146 mmol/L [facility] Potassium 3.6 3.5 - 5.3 mmol/L [facility] Chloride 100 98 - 110 mmol/L [facility] CO2 28 20 - 32 mmol/L [facility] Calcium 8.9 8.6 - 10.3 mg/dL [facility] Protein Total 6.9 6.1 - 8.1 g/dL [facility] Albumin 4.3 3.6 - 5.1 g/dL [facility] Globulin Total 2.6 1.9 - 3.7 g/dL (calc) [facility] Albumin/Globulin Ratio 1.7 1.0 - 2.5 (calc) [facility] Bilirubin Total 0.6 0.2 - 1.2 mg/dL [facility] Alkaline Phosphatase 69 35 - 144 U/L [facility] AST 26 10 - 35 U/L [facility] ALT 27 9 - 46 U/L [facility] Comment: Test Performed at: [facility] [id number] [address] [facility] [place] [address] CINTHYA AVILA MD Blood BLOOD SPECIMEN / Unknown 05/17/2024 7:46 AM MARKETING SUMMER INTERN 05/17/2024 7:46 AM MARKETING SUMMER INTERN us Pre[facility] - CHEMISTRY ORDERABLES F inal Result [facility] [address] [place] [address] * CBC WITH DIFFERENTIAL (05/17/2024 7:46 AM MARKETING SUMMER INTERN) White Blood Cell Count 6.5 3.8 - 10.8 Thousand/u L [facility] RBC 4.93 4.20 - 5.80 Million/uL [facility] Hemoglobin 14.5 13.2 - 17.1 g/dL [facility] Hematocrit 42.2 38.5 - 50.0 % [facility] MCV 85.6 80.0 - 100.0 fL [facility] MCH 29.4 27.0 - 33.0 pg [facility] MCHC 34.4 32.0 - 36.0 g/dL [facility] Comment: For adults, a slight decrease in the calculated MCHC value (in the range of 30 to 32 g/dL) is most likely not clinically significant; however, it should be interpreted with caution in correlation with other red cell parameters and the patient's clinical condition. RDW 13.2 11.0 - 15.0 % [facility] Platelet Count 194 140 - 400 Thousand/u L [facility] MPV 11.5 7.5 - 12.5 fL [facility] Neutrophil Absolute 4050 1500 - 7800 cells/uL [facility] Lymphocytes Absolute 1515 850 - 3900 cells/uL [facility] Absolute Monocytes 624 200 - 950 cells/uL [facility] Eosinophils Absolute 254 15 - 500 cells/uL [facility] Basophils Absolute 59 0 - 200 cells/uL [facility] Granulocytes % 62.3 % [facility] Lymphocytes % 23.3 % [facility] Monocytes % 9.6 % [facility] Eosinophils % 3.9 % [facility] Basophils % 0.9 % [facility] Comment: Test Performed at: [facility] [id number] [address] [place] [address] CINTHYA AVILA MD Blood BLOOD SPECIMEN / Unknown 05/17/2024 7:46 AM MARKETING SUMMER INTERN 05/17/2024 7:46 AM MARKETING SUMMER INTERN us Prema [facility] - HEMATOLOGY ORDERABLES Final Result Performing Organization Address City/State/[facility] Co de Phone Number [facility] [address] [place] [address] documented in this encounter Visit Diagnoses Diagnosis High risk medication use- Primary Encounter for long-term (current) use of other medications documented in this encounter Care Teams Break Off Worker Relationship Specialty Start Date End Date Sachin Cooper MD [address] [place] [address] PCP - General 08/23/12 documented as of this encounter
--- OUTSIDE RECORDS SUMMARY | 2025-03-07 10:08 | XMS_ITS | Encounter Summary ---
Author Organization [facility] Address [address] [facility] [place] [address] Care Team Providers Care Base Draw Operator Name Role Phone Sachin Cooper MD Primary Care Provider [phone] Reason for Visit * Reason Onset Date Comments MEDICATION REFILL 2023 Encounter Details Date Type Department Care Team (Late st Contact Info) Description 2023 Telephone [facility] - Centralized Scheduling [address] [place] [phone] Christopher Teran MD [address] DEPT [place] [address] MEDICATION REFILL Social History Tobacco Use Types Packs/Day Years Used Date Smoking Tobacco: Never Smokeless Tobacco: Never Alcohol Use Standard Drinks/Week Comments Yes 2 (1 standard drink = 0.6 oz pur e alcohol) rarely Sex and Gender Information Value Date Recorded Sex Assigned at Not on file Legal Sex Male 5:14 PM OCEANOGRAPHER GEOLOGICAL Gender Identity Not on file Sexual Orientation Not on file documented as of this encounter Miscellaneous Notes * Telephone Encounter - Andrei Lewis DO - 09/21/2023 12:27 PM CDT Called patient on cell phone re: question. Re-sent Skyrizi to [facility] in [place] (per provided phone #). Patient understands order placed today. Appreciative of call and all questions answered. Andrei Lewis DO PGY-4 Dermatology Resident * Telephone Encounter - Monet Andino - 2023 3:23 PM CDT Patient called about a medication he needs refilled, he has been out for about a month. It is for his skyrizi. It needs to go to [facility] through his ins. Patient would like to speak to someone about this [facility] [phone] Pharmacy number [phone] documented in this encounter Plan of Treatment Upcoming Encounters Date Type Department Care Team (Late st Contact Info) Description 07/16/2025 8:40 AM OCEANOGRAPHER GEOLOGICAL Office Visit [facility] - Dermatology [address] [place] [address], [facility] [place] [address] Christopher Teran MD [address] [place] [address] [address] [place] [address] documented as of this encounter Visit Diagnoses Not on filedocumented in this encounter Care Teams Base Draw Operator Relationship Specialty Start Date End Date Sachin Cooper MD [address] [place] [address] PCP - General 08/23/12 documented as of this encounter
[2025-03-07 10:09] LABS: Estimated Glomerular Filt Rate > 60
== END 2025-03-07 09:24 | disposition home or self-care (01) ==
PROVIDERS: PCP Family Medicine; Visit Provider Nurse Practitioner Family
DX: N28.89 Other specified disorders of kidney and ureter (principal)
CPT/HCPCS: 74178; Q9967